=== PATIENT | female | born 1970 | race Two or more races ===

== ENCOUNTER → 2019-05-03 | Outpatient (CLI) | payer BC ==
[~2019-05-03] MED LIST: CHOL10005 PO; CHOL200051 PO; ERGO500037 PO; MULT-820 PO; OMEG100032 PO; OMEP-126 PO; POTA99TA6 PO
== END ==
LOC: LAB 09:51
PROVIDERS: ATTEND Urology
DX: R31.1 Benign essential microscopic hematuria (principal)
CPT/HCPCS: 81001; 87088

== ENCOUNTER → 2019-05-07 | Outpatient (CLI) | payer BC | LOC: CT 01:11 | PROVIDERS: ATTEND Urology | DX: R31.9 Hematuria, unspecified (principal) ==

== ENCOUNTER → 2019-05-10 | Outpatient (CLI) | payer BC ==
[~2019-05-10] MED LIST changes: +CIPR-214 PO; +IOPAMIDOL 76% 100 ML INFUS BTL 100 ML ONE; +IOPAMIDOL ONE; +NS(*) 0.9% 50 ML BAG 50 ML ONE
--- NOTE | 2019-05-10 16:33 | RADIOLOGY IMAGING REPORT ---
FACILITY: [facility] [place] PATIENT NAME: Veronica Mcknight : 1970 MR: [id number] V: [id number] EXAM DATE: ORDERING PHYSICIAN: KASSIDY MARTINEZ TECHNOLOGIST: Location: [facility] [place] Patient: Veronica Mcknight : 1970 Visit/Account:[id number] Date of Sevice: 05/10/2019 CT ABDOMEN PELVIS W & W/O CONTRAST HISTORY: Hematuria. TECHNIQUE: CT abdomen and pelvis without and with intravenous contrast. One of the following dose optimization techniques was utilized in the performance of this exam: Autom ated exposure control; adjustment of the mA and/or kV according to the patient's size; or use of an i terative reconstruction technique. Specific details can be referenced in the facility's radiology C T exam operational policy. CONTRAST: 125 mL Isovue-370 IV COMPARISON: None. FINDINGS: Visualized lung bases: Unremarkable. Hepatobiliary: Negative. Spleen: Negative. Adrenals: Negative. Pancreas: Negative. Kidneys/: Mild cortical scarring upper and lower poles left kidney, kidneys otherwise unremarkable without CT evident renal lesion. No urinary collecting system stone or obstruction. Excretory phase images demonstrate well opacified pelvicalyceal systems bilateral without gross filling defect. Allow ing for a short segment of likely peristaltic narrowing within the distalmost left ureter (-47), each ureter is also well opacified and without gross filling defect. Urinary bladder morphologically unremarkable. Likely sequela of prior section. Nabothian cyst at cervix. GI: No obstruction, wall thickening or surrounding inflammation. Vessels/spaces/nodes: Mild common iliac atherosclerosis. No adenopathy. Trace free pelvic fluid, lik kristofer physiologic. Bones/soft tissues: Nonaggressive appearing sclerotic lesion medial right ilium, likely bone island. Moderate sized periumbilical ventral wall eventration without henry herniation. Small fat-containing supraumbilical midline ventral hernias. IMPRESSION: Mild left renal cortical scarring, likely sequela of prior infections, otherwise unremarkable assessm ent of the urinary tract without findings identified to explain patient's reported hematuria. Report Dictated By: Luis Medina MD at 05/10/2019 4:17 PM Report E-Signed By: Luis Medina MD at 05/10/2019 4:26 PM WSN:[id number]
== END ==
LOC: CT 00:24
PROVIDERS: ATTEND Urology
DX: R31.9 Hematuria, unspecified (principal)
CPT/HCPCS: 74178; J7050; Q9967